=== PATIENT | female | born 1970 | race Caucasian/White ===

== ENCOUNTER 2018-07-20 05:37 | Day surgery (SDC) | payer OTHER ==
[~2018-07-20 05:37] MED LIST: CYMBALTA30 MG PO; NEURONTIN300 MG PO; NORFLEX PO; PREVACID30 MG PO; SYNTHROID75 MCG PO; ZANTAC300 MG PO
== END 2018-07-20 11:20 | disposition home or self-care (01) ==
LOC: CIR.AMB 05:37
DX: K64.8 Other hemorrhoids (principal)

== ENCOUNTER 2018-10-12 08:57 | Outpatient (CLI) | payer OTHER | END 2018-10-12 09:06 | disposition home or self-care (01) | LOC: NUCLEAR 08:57 | DX: M05.69 Rheumatoid arthritis of multiple sites with involvement of other organs and systems (principal); I73.9 Peripheral vascular disease, unspecified; M87.9 Osteonecrosis, unspecified; M94.9 Disorder of cartilage, unspecified; I87.2 Venous insufficiency (chronic) (peripheral) ==

== ENCOUNTER 2018-10-17 15:12 | Outpatient (CLI) | payer OTHER | END 2018-10-17 15:56 | disposition home or self-care (01) | LOC: NUCLEAR 15:12 | DX: I87.2 Venous insufficiency (chronic) (peripheral) (principal); M87.9 Osteonecrosis, unspecified; M94.9 Disorder of cartilage, unspecified ==